=== PATIENT | female | born 1955 | race Caucasian/White ===

== ENCOUNTER → 2018-08-22 12:16 | Outpatient (CLI) | payer OTHER, SELFPAY | DX: Z23 Encounter for immunization (principal) | CPT/HCPCS: 90471; 90686 ==

== ENCOUNTER → 2019-08-02 11:03 | Outpatient (CLI) | payer OTHER, SELFPAY | DX: Z23 Encounter for immunization (principal) | CPT/HCPCS: 90471; 90662 ==

== ENCOUNTER → 2019-08-23 12:17 | Outpatient (CLI) | payer OTHER, SELFPAY ==
--- NOTE | 2019-08-23 | DI.MG.S_ITS ---
BILATERAL DIGITAL SCREENING MAMMOGRAM 3D/2D WITH CAD: 08/23/2019 CLINICAL: Routine screening. Comparison is made to exams dated: 03/15/2017 mammogram, 11/19/2013 mammogram - [facility], and 11/10/2011 mammogram - [facility]. There are scattered fibroglandular elements in both breasts. Current study was also evaluated with a Computer Aided Detection (CAD) system. No significant masses, calcifications, or other findings are seen in either breast. There has been no significant interval change. IMPRESSION: NEGATIVE There is no mammographic evidence of malignancy. A 1 year screening mammogram is recommended. This exam was interpreted at Station ID: [id number]. NOTE: For mammograms, a report in lay terms will be sent to the patient. Approximately 15% of breast malignancies will not be visualized mammographically. In the management of a palpable breast mass, a negative mammogram must not discourage biopsy of a clinically suspicious lesion. Electronically Signed By: Felipe samson/elizabeth:08/23/2019 13:04:41 letter sent: Normal Exam ACR BI-RADS Category 1: Negative 3341F
== END ==
PROVIDERS: Visit Provider Nurse Practitioner Family
DX: Z12.31 Encounter for screening mammogram for malignant neoplasm of breast (principal); M81.0 Age-related osteoporosis without current pathological fracture; Z78.0 Asymptomatic menopausal state
CPT/HCPCS: 77063; 77067; 77080

== ENCOUNTER → 2020-11-14 11:12 | Outpatient (CLI) | payer MEDICARE, SELFPAY ==
[2020-11-14] MEDS: COVID-19 VACC(MODERNA-1)/PF 100 MCG/0.5 ML VIAL IM (11:17)
== END ==
PROVIDERS: Visit Provider Internal Medicine
DX: Z23 Encounter for immunization (principal)
CPT/HCPCS: 0011A; 91301

== ENCOUNTER → 2020-12-12 10:43 | Outpatient (CLI) | payer MEDICARE, SELFPAY ==
[2020-12-12] MEDS: COVID-19 VACC #2, MRNA(MOD) 100 MCG/0.5 ML VIAL IM (10:46)
== END ==
PROVIDERS: Visit Provider Internal Medicine
DX: Z23 Encounter for immunization (principal)
CPT/HCPCS: 0012A; 91301

== ENCOUNTER → 2021-04-23 13:56 | Outpatient (CLI) | payer OTHER, SELFPAY ==
--- NOTE | 2021-04-23 13:59 | DI.RAD.S_ITS ---
PROCEDURE: XR DEXA AXIAL SKELETON INDICATIONS: Age-related osteoporosis COMPARISON: [facility], CR, XR DEXA AXIAL SKELETON, 08/23/2019, 12:46. FINDINGS: This blank DEXA report has been sent in error by the PACS system. The correct and complete report will be forthcoming in 1-2 days. Thank you for your patience and understanding. Dictated by: Diana Templeton MD, PhD on 04/23/2021 at 16:59 Approved by: Diana Templeton MD, PhD on 04/23/2021 at 16:59
== END ==
PROVIDERS: PCP Student in an Organized Health Care Education/Training Program; Referring Provider Student in an Organized Health Care Education/Training Program; Visit Provider Student in an Organized Health Care Education/Training Program
DX: M81.0 Age-related osteoporosis without current pathological fracture (principal); Z78.0 Asymptomatic menopausal state
CPT/HCPCS: 77080

== ENCOUNTER → 2021-08-19 11:11 | Outpatient (CLI) | payer OTHER, SELFPAY ==
[2021-08-19 13:03] LABS: COVID19 -Nasal RAPID Negative (Negative)
== END ==
PROVIDERS: PCP Student in an Organized Health Care Education/Training Program; Visit Provider Nurse Practitioner
DX: Z01.812 Encounter for preprocedural laboratory examination (principal); Z20.822 Contact with and (suspected) exposure to COVID-19
CPT/HCPCS: 87635; C9803

== ENCOUNTER 2021-08-21 13:29 | Day surgery (SDC) | payer OTHER, SELFPAY ==
--- NOTE | 2021-08-21 12:05 | P.HP_ITS ---
History of Present Illness History of Present Illness Date Patient Seen: 08/21/21 Chief complaint: [facility] [place] Narrative: 66 year old female comes in today for consideration of a screening colonoscopy. Last colonoscopy in 2009, normal. There have been no lower GI symptoms suggesting disease such as change in bowel habits, bleeding, abdominal pain or anemia. There's been no family history of colon cancer or colon polyps. Overall health issues have been stable, including no major cardiac events for at least 6 weeks. PCP: Dr. Michael Past medical history: Hypertension Osteoporosis Psoriasis Past surgical history: Tonsillectomy 1994 Bunionectomy Bilateral cataracts 04/2020 Colonoscopy, 2009 Family History: Father, hypertension Social History: : Gonzalez Shay (04[birth year]52) Volunteers: [employer] Patient History Medical History (Updated 08/21/21 @ 14:19 by Ishmael Marcano RN) Cataract Cataract (lens) fragments in eye following cataract surgery, bilateral Hypertension Supraventricular tachycardia Surgical History (Updated 08/21/21 @ 14:18 by Ishmael Marcano RN) History of bunionectomy History of tonsillectomy Meds Home Medications and Allergies Home Medications Medication Instructions Recorded Confirmed Type atorvastatin 10 mg PO DAILY 08/21/21 08/21/21 History hydrochlorothiazide 5 mg PO DAILY 08/21/21 08/21/21 History ibandronate 1 tab PO 08/21/21 History Allergies Allergy/AdvReac Type Severity Reaction Status Date / Time No Known Drug Allergies Allergy Verified 08/21/21 14:16 Review of Systems Review of Systems Narrative: All remaining ROS were reviewed and negative except as addressed. Exam Narrative Exam Narrative: GENERAL: Alert and oriented, appearing stated age and in no acute distress. HEENT: Head normocephalic/atraumatic. LUNGS: Clear to ausculation bilaterally, no wheezes, rhonchi or rales. CV: Normal S1 and S2 with regular rate and rhythm, no audible murmurs, rubs or gallops. ABDOMEN: Soft, non-tender, non-distended, no organomegaly. Positive bowel sounds. EXTREMITIES: No clubbing, cyanosis, or edema. NEURO: Cranial nerves II through XII grossly intact, no focal deficits. PSYCH: Alert and oriented x 3. SKIN: No concerning lesions. Assessment & Plan Assessment & Plan narrative: 1. Screening for colon cancer Plan for colonoscopy. The nature and character of the procedure as well as anticipated results were discussed. The possibility of not completing the procedure was also discussed. Possible complications including aspiration pneumonia, bleeding, perforation and reaction to medications either for sedation or preparation and missed lesions were discussed. Questions were answered and proceeding to the colonoscopy was elected. Informed consent signed.
--- NOTE | 2021-08-21 12:08 | PM.OP.COLON ---
Operative Date/Time/Diagnoses Date of procedure: 08/21/21 Procedure Notes SCOAP/Timeout: 2:39 p.m. Procedure in detail: ENDOSCOPIST: Hermleinda Michael MD Sedation RN: Josiah Wells RN Sedation start time: 2:39 p.m. Sedation end time: 3:19 p.m. PROCEDURE: Colonoscopy INDICATIONS: 1. Screening for colon cancer MEDICATION: Levsin 0.125 mg sublingual, incremental doses of Versed and fentanyl until appropriate level sedation achieved. ASA CLASS: 2 CECAL WITHDRAWAL TIME: 7 minutes COMPLICATIONS: None. EXTENT OF PROCEDURE: Cecum. QUALITY OF PREP: Good with portions of liquid stool. PROCEDURE: Prior to insertion of the colonoscope, a digital rectal examination was accomplished with circumferential palpation of the distal rectal mucosa without significant findings being noted. The high-definition pediatric colonoscope was passed into the rectum in the usual fashion and advanced over to the cecum without difficulty. The ileocecal valve, appendiceal stoma, and medial wall all could be inspected and no abnormalities were seen. ASCENDING COLON: As the colonoscope was withdrawn, care was taken to expose and inspect the haustral folds and no abnormalities were seen. HEPATIC FLEXURE: Normal, no polyps, diverticula or other abnormalities. TRANSVERSE COLON: Normal, no polyps, diverticula or other abnormalities. DESCENDING COLON: Normal, no polyps, diverticula or other abnormalities. SIGMOID COLON: Normal, no polyps, diverticula or other abnormalities. RECTUM: Normal. J maneuver was produced. There was no significant perianal disease. The J maneuver was broken. The remainder of the rectum was inspected and there was no external hemorrhoid disease. The scope was withdrawn. IMPRESSION: 1. Normal colonoscopy PLAN: 1. Repeat colonoscopy in 10 years. The possibility of a missed lesion including a malignancy has been discussed with the patient previously. Potential alarm symptoms have been discussed and should be reported immediately.
[2021-08-21 13:48] VITALS: BMI 26.9
[2021-08-21] MEDS: HYOSCYAMINE 0.125 MG TABLET PO (13:58)
[2021-08-21 14:07] VITALS: BP 157/88; PULSE 69; RESP 16; TEMP 36.6; O2SAT 99
[2021-08-21] MEDS: LACTATED RINGERS 1,000 ML 200 ML IV (14:15)
[2021-08-21] MEDS: MIDAZOLAM 5 MG/5 ML VIAL IV (14:59)
[2021-08-21] MEDS: fentaNYL 250 MCG/5 ML INJ IV (14:59)
[2021-08-21 15:23] VITALS: BP 130/82; PULSE 70; RESP 15; TEMP 36.6; O2SAT 96
[2021-08-21 15:28] VITALS: BP 127/87; PULSE 63; RESP 12; O2SAT 97
[2021-08-21 15:33] VITALS: BP 135/91; PULSE 64; RESP 15; O2SAT 96
[2021-08-21 15:37] VITALS: BP 141/92; PULSE 67; RESP 16; TEMP 36.2; O2SAT 97
[2021-08-21 15:46] VITALS: BP 142/97; PULSE 63; RESP 15; O2SAT 98
== END 2021-08-21 16:00 | disposition home or self-care (01) ==
PROVIDERS: PCP Student in an Organized Health Care Education/Training Program; Referring Provider Student in an Organized Health Care Education/Training Program; Visit Provider Student in an Organized Health Care Education/Training Program
PROC: 0DJD8ZZ Inspection of Lower Intestinal Tract, Via Natural or Artificial Opening Endoscopic (ICD-10-PCS; CPT 45378; principal; 2021-08-21 14:30)
DX: Z12.11 Encounter for screening for malignant neoplasm of colon (principal); I10 Essential (primary) hypertension
CPT/HCPCS: G0121; J2250; J3010

== ENCOUNTER → 2021-08-24 10:06 | Outpatient (CLI) | payer OTHER, SELFPAY ==
--- NOTE | 2021-08-24 | DI.MG.S_ITS ---
BILATERAL DIGITAL SCREENING MAMMOGRAM 3D/2D WITH CAD: 08/24/2021 CLINICAL: Routine screening. Comparison is made to exams dated: 08/23/2019 mammogram, 03/15/2017 mammogram, and 11/19/2013 mammogram - . There are scattered fibroglandular elements in both breasts. Current study was also evaluated with a Computer Aided Detection (CAD) system. No significant masses, calcifications, or other findings are seen in either breast. There has been no significant interval change. IMPRESSION: NEGATIVE There is no mammographic evidence of malignancy. A 1 year screening mammogram is recommended. This exam was interpreted at Station ID: [id number]. NOTE: For mammograms, a report in lay terms will be sent to the patient. Approximately 15% of breast malignancies will not be visualized mammographically. In the management of a palpable breast mass, a negative mammogram must not discourage biopsy of a clinically suspicious lesion. Electronically Signed By: Shelly escobar/elizabeth:08/24/2021 12:22:16 letter sent: Normal Exam ACR BI-RADS Category 1: Negative 3341F
== END ==
PROVIDERS: PCP Student in an Organized Health Care Education/Training Program; Referring Provider Student in an Organized Health Care Education/Training Program; Visit Provider Student in an Organized Health Care Education/Training Program
DX: Z12.31 Encounter for screening mammogram for malignant neoplasm of breast (principal)
CPT/HCPCS: 77063; 77067

== ENCOUNTER → 2022-09-24 10:24 | Outpatient (CLI) | payer OTHER, SELFPAY ==
--- NOTE | 2022-09-24 10:26 | DI.MG.S_ITS ---
BILATERAL DIGITAL SCREENING MAMMOGRAM 3D/2D WITH CAD: 09/24/2022 CLINICAL: Routine screening. Comparison is made to exams dated: 08/24/2021 mammogram, 08/23/2019 mammogram, and 03/15/2017 mammogram - [facility]. There are scattered areas of fibroglandular density in both breasts (category b / 25%-50% glandular tissue). Current study was also evaluated with a Computer Aided Detection (CAD) system. No significant masses, calcifications, or other findings are seen in either breast. There has been no significant interval change. IMPRESSION: NEGATIVE There is no mammographic evidence of malignancy. A 1 year screening mammogram is recommended. Based on the Tyrer Cuzick model (a risk assessment model) the patient's lifetime risk is 7.4% and her 10 year risk is 4.1%. According to the ACR, ACS, and NCCN guidelines, an annual breast MRI exam along with mammogram is recommended if the patient's lifetime risk is 20% or greater. This exam was interpreted at Station ID: [id number]. NOTE: For mammograms, a report in lay terms will be sent to the patient. Approximately 15% of breast malignancies will not be visualized mammographically. In the management of a palpable breast mass, a negative mammogram must not discourage biopsy of a clinically suspicious lesion. Electronically Signed By: Felipe samson/elizabeth:09/24/2022 16:04:32 letter sent: Normal Exam ACR BI-RADS Category 1: Negative 3341F
== END ==
PROVIDERS: PCP Family Medicine; Referring Provider Family Medicine; Visit Provider Family Medicine
DX: Z12.31 Encounter for screening mammogram for malignant neoplasm of breast (principal)
CPT/HCPCS: 77063; 77067

== ENCOUNTER → 2023-10-26 11:44 | Outpatient (CLI) | payer OTHER, SELFPAY ==
--- NOTE | 2023-10-26 | DI.RAD.S_ITS ---
Bone Density Report Name: GHULAM BUTLER Age: 68 Sex: Female Ethnicity: White Date of : 1955 Indication: osteopenia; Referring Provider: PITER LOVELL Study: Bone densitometry was performed. Exam Date: October 26, 2023 Accession number: [id number] Bone Density: Region BMD T-score Z-score Classification AP Spine(L1, L2) 0.792 -1.7 0.2 Osteopenia Femoral Neck (Left) 0.475 -3.4 -1.6 Osteoporosis Total Hip (Left) 0.748 -1.6 -0.1 Osteopenia Femoral Neck (Right) 0.481 -3.3 -1.6 Osteoporosis Total Hip (Right) 0.701 -2.0 -0.5 Osteopenia Total Hip Mean 0.725 -1.8 -0.3 Osteopenia World Health Organization criteria for BMD impression classify patients as: Normal (T-score at or above -1.0), Osteopenia (T-score between -1.0 and -2.5), or Osteoporosis (T-score at or below -2.5). 10-year Fracture Risk: FRAX not reported because: Some T-score for Spine Total or Hip Total or Femoral Neck at or below -2.5 Previous Exams: -- Region Exam Age BMD T-score BMD Change BMD Change Date g/cm2 vs Baseline vs Previous -- AP Spine (L1-L2) 10/26/2023 68 0.792 -1.7 -0.036 (-4.4%)# -0.036 (-4.4%)# 04/23/2021 65 0.828 -1.4 Total Hip(Left) 10/26/2023 68 0.748 -1.6 0.043 (6.1%)# 0.043 (6.1%)# 04/23/2021 65 0.705 -1.9 Total Hip(Right) 10/26/2023 68 0.701 -2.0 -0.009 (-1.3%)# -0.009 (-1.3%)# 04/23/2021 65 0.710 -1.9 -- *Denotes significance at 95% confidence level, LSC for AP Spine = 0.022 g/cm2, LSC for Total Hip = 0.027 g/cm2 # Denotes dissimilar scan types or analysis methods Impression: The patient has osteoporosis, based on the Left Femoral Neck T-score. No significant bone loss was observed. Discussion: INCREASED RISK OF FRACTURE. BONE DENSITY IS UNDESIRABLY LOW AT ONE OR MORE SKELETAL SITES, CONSISTENT WITH POSTMENOPAUSAL OSTEOPOROSIS. This patient's lowest T-score meets the World Health Organization's (WHO) criteria for osteoporosis at one or more sites (T-score -2.5 or below). In untreated patients, the risk of osteoporotic fracture increases approximately two-fold for each 1.0 SD decrease in T-score. Low bone density is not the only risk factor for fracture; also consider factors such as patient's age, frailty or poor health, risk of falling, risk of injury, previous osteoporotic fracture, family history of osteoporosis, cigarette smoking, low body weight, etc. Not everyone with low bone mineral density has osteoporosis; osteomalacia and other metabolic bone disorders should also be considered. Patients who have osteoporosis should be evaluated for specific diseases and conditions (secondary causes) that may cause or contribute to bone loss. The [employer] Association [employer] Endocrinologists (AACE) and National Osteoporosis Foundation (NOF) recommend pharmacologic intervention for all postmenopausal women whose T-score is in this range. The patient should follow a healthful lifestyle (good nutrition with adequate calcium and vitamin D, and appropriate weight-bearing exercise). Follow-Up: Consider a repeat BMD and Vertebral Fracture Assessment (VFA) exam in 2 years or sooner if medically necessary, to reassess this patient's status. Reported by: [facility] ASHLEE ALVARADO M.D. on 10/26/2023 1:23:00 PM.
--- NOTE | 2023-10-26 | DI.MG.S_ITS ---
BILATERAL DIGITAL SCREENING MAMMOGRAM 3D/2D WITH CAD: 10/26/2023 CLINICAL: Routine screening. Comparison is made to exams dated: 09/24/2022 mammogram, 08/24/2021 mammogram, and 08/23/2019 mammogram - [facility]. There are scattered areas of fibroglandular density in both breasts (category b / 25%-50% glandular tissue). Current study was also evaluated with a Computer Aided Detection (CAD) system. No significant masses, calcifications, or other findings are seen in either breast. There has been no significant interval change. IMPRESSION: NEGATIVE There is no mammographic evidence of malignancy. A 1 year screening mammogram is recommended. Based on the Tyrer Cuzick model (a risk assessment model) the patient's lifetime risk is 7.0% and her 10 year risk is 4.1%. According to the ACR, ACS, and NCCN guidelines, an annual breast MRI exam along with mammogram is recommended if the patient's lifetime risk is 20% or greater. This exam was interpreted at Station ID: [id number]. NOTE: For mammograms, a report in lay terms will be sent to the patient. Approximately 15% of breast malignancies will not be visualized mammographically. In the management of a palpable breast mass, a negative mammogram must not discourage biopsy of a clinically suspicious lesion. Electronically Signed By: Nilo valentine/elizabeth:10/26/2023 13:55:16 letter sent: Normal Exam ACR BI-RADS Category 1: Negative 3341F
== END ==
PROVIDERS: PCP Family Medicine; Referring Provider Family Medicine; Visit Provider Family Medicine
DX: Z12.31 Encounter for screening mammogram for malignant neoplasm of breast (principal); M81.0 Age-related osteoporosis without current pathological fracture
CPT/HCPCS: 77063; 77067; 77080

== ENCOUNTER → 2024-09-04 09:39 | Outpatient (CLI) | payer OTHER, SELFPAY ==
--- NOTE | 2024-09-04 09:42 | DI.RAD.S_ITS ---
PROCEDURE: XR ANKLE RT MIN 3V INDICATIONS: ANKLE PAIN TECHNIQUE: 3 views of the ankle were acquired. COMPARISON: None. FINDINGS: Bones: Small avulsion fracture off the dorsal cortex of the talar neck appreciated. Age indeterminate. No other osseous abnormalities. Tibiotalar and talocalcaneal joints: Normal in width and alignment without arthritic change. Soft tissues: Minor calcification Achilles and plantar tendon insertion on the calcaneus noted. There is mild diffuse soft tissue swelling. IMPRESSION: Small avulsion fracture dorsal cortex talar neck -age indeterminate. Dictated by: Mohan Reynoso M.D. on 09/05/2024 at 9:40 Approved by: Mohan Reynoso M.D. on 09/05/2024 at 9:42
== END ==
LOC: RAD 09:40
PROVIDERS: PCP Family Medicine; Referring Provider Family Medicine; Visit Provider Family Medicine
DX: S92.111A Displaced fracture of neck of right talus, initial encounter for closed fracture (principal); M25.571 Pain in right ankle and joints of right foot; G89.29 Other chronic pain
CPT/HCPCS: 73610

== ENCOUNTER → 2025-08-28 15:44 | Outpatient (CLI) | payer MEDICARE, OTHER, SELFPAY ==
--- NOTE | 2025-08-28 15:49 | DI.RAD.S_ITS ---
PROCEDURE: XR WRIST LT MIN 3V INDICATIONS: PAIN TECHNIQUE: 4 views of the wrist were acquired. COMPARISON: None. FINDINGS: Bones: Distal radius fracture. A horizontal lucency at the metaphysis. Minimally displaced. Additionally there is a vertically oriented lucency at the ulnar aspect of the distal radius which extends to the articular surface. No dislocations. No suspicious bony lesions. Small ossicle adjacent to the ulnar styloid. Could be the sequelae of remote trauma. Moderate degenerative changes most pronounced at the 1st CMC joint. Soft tissues: No suspicious soft tissue calcifications. IMPRESSION: Distal radius fractures. However, these fractures could be subacute. Dictated by: Yang Lilly M.D. on 08/29/2025 at 7:47 Approved by: Yang Lilly M.D. on 08/29/2025 at 7:50
== END ==
PROVIDERS: PCP Family Medicine; Referring Provider Family Medicine; Visit Provider Family Medicine
DX: S52.502A Unspecified fracture of the lower end of left radius, initial encounter for closed fracture (principal); M25.532 Pain in left wrist
CPT/HCPCS: 73110